=== PATIENT | male | born 1955 | race Caucasian/White ===

== ENCOUNTER → 2019-05-30 | Outpatient (CLI) | payer OTHER | LOC: ZCOL.LAB 13:11 | DX: R06.02 Shortness of breath (principal) ==

== ENCOUNTER → 2020-05-02 | Outpatient (CLI) | payer OTHER | LOC: COL.RAD 14:00 | DX: J32.0 Chronic maxillary sinusitis (principal); J32.2 Chronic ethmoidal sinusitis; J34.89 Other specified disorders of nose and nasal sinuses ==

== ENCOUNTER → 2024-06-01 | Outpatient (CLI) | payer OTHER ==
[~2024-06-01] VITALS: Ht 182.9 cm; Wt 102.5 kg
[~2024-06-01] MED LIST: COZAAR100 MG PO; HCTZ 25MG TAB25 MG PO; LIPITOR20 MG PO; SINGULAIR 110 MG/TAB PO; Triamcinolone 40 MG/ML 1 ML VIAL IJ SCH; VOLTAREN 50MG T50 MG PO
[2024-06-01 07:51] VITALS: BP 144/92; PULSE 64; TEMP 98.2
[2024-06-01 08:47] VITALS: BP 121/77; PULSE 61
--- NOTE | 2024-06-01 09:11 | NUR ---
PATIENT COMPLETED RECOVERY TIME WITHOUT ISSUE. PATIENT IS ABLE TO WALK INDEPENDENTLY WITHOUT ANY ISSUES. BANDAGE REMAINS CLEAN, DRY, AND INTACT. PATIENT HAS ALL PAPERWORK AND PERSONAL ITEMS WITH HIM. ALL NEEDS MET. ESCORTED PATIENT OUT TO HIS RIDE VIA WHEELCHAIR. PATIENT WAS ABLE TO GET INTO THE FRONT PASSENGER SEAT OF THE VEHICLE WITHOUT ANY DIFFICULTY.
== END ==
LOC: COL.RAD 07:30
DX: M48.062 Spinal stenosis, lumbar region with neurogenic claudication (principal)
CPT/HCPCS: J0665; J3301